=== PATIENT | male | born 1965 | race African-American/Black ===

== ENCOUNTER 2016-12-30 12:24 | Emergency (ER) | payer OTHER ==
[~2016-12-30 12:24] MED LIST: ALTACE; ALTACE PO; ASPIRIN PO; BACTRIM DS TABL1 TAB PO; BAYER ASPIRIN325 M1 PO; GAS RELIEF 8080 M1 PO; GLIPIZIDE10 MG PO; GLUCOTROL XL PO; HYDRALAZINE HCL25 MG PO; KEFLEX PO; LIPITOR PO; LIPITOR20 MG PO; LISINOPRIL PO; LOPRESSOR PO; LORTAB 7.5-5001 TAB PO; METFORMIN PO; NEXIUM PO; PHENERGAN PO; PIOGLITAZONE45 MG PO; PLAVIX; TUMS500 M1 PO; TYLOX 5/500 CAP1 CAP PO; VICODIN 5/500 T1 TAB PO; VITAMIN D34000 UNIT PO; ZESTRIL10 M1 PO; ZETIA PO
[2017-04-13] MEDS ORDERED: BAYER CHEWABLE81 MG PO (09:34)
[2017-04-13] MEDS ORDERED: LIPITOR (09:35)
[2017-04-13] MEDS ORDERED: VIT B-12 PO (09:35)
[2017-04-13] MEDS ORDERED: NEXIUM PO (09:36)
[2017-04-13] MEDS ORDERED: PIOGLITAZONE45 MG PO (09:36)
[2017-04-13] MEDS ORDERED: ZESTRIL40 MG PO (09:37)
[2017-04-13] MEDS ORDERED: ADALAT CC PO (09:38)
[2017-04-13] MEDS ORDERED: LOPRESSOR PO (09:38)
[2017-04-13] MEDS ORDERED: HYDRALAZINE HCL50 MG PO (09:38)
== END 2016-12-30 12:38 | disposition home or self-care (01) ==
LOC: CED 12:24
DX: I10 Essential (primary) hypertension (principal); E11.9 Type 2 diabetes mellitus without complications
CPT/HCPCS: 99282

== ENCOUNTER → 2017-04-13 | Day surgery (SDC) | payer MEDICARE ==
[~2017-04-13] MED LIST changes: +ADALAT CC PO; +BAYER CHEWABLE81 MG PO; +HYDRALAZINE HCL50 MG PO; +LIPITOR; +VIT B-12 PO; +ZESTRIL40 MG PO
--- NOTE | ~2017-04-13 | OR ---
Unit #: [id number] #: [id number] Patient: ADOLFO COWART [id number] [address] [place], [place] [address] [id number] O MR#: [id number] NAME: ADOLFO COWART. ROOM: Date of Procedure: 04/13/2017 Admission Date: 04/13/2017 Surgeon: Daniel Garcia M.D. : 1965 Attending Physician: Daniel Garcia M.D. Primary Care Physician: [facility] OPERATIVE REPORT PROCEDURES PERFORMED Esophagogastroduodenoscopy with biopsy, colonoscopy with biopsy, and colonoscopy with snare polypectomy. INDICATIONS FOR PROCEDURE Average risk for colorectal cancer, also with persistent GERD symptoms, undergoing evaluation with upper endoscopy and colonoscopy. MEDICATIONS Monitored anesthesia. POSTOPERATIVE FINDINGS 1. Small segment of Agarwal esophagus. Biopsies taken. 2. Mild esophagitis, moderate hiatal hernia. 3. Mild gastritis. Biopsies taken. 4. Normal duodenum and distal duodenum. 5. Colonoscopy completed to cecum. Prep was adequate. 6. Polyp, ascending colon, 2 mm, removed using biopsy forceps. 7. Polyp, transverse colon, 5 to 6 mm, snared and sent for histopathology. 8. Rest of the colon exam was normal. PLAN Follow up on the pathology report. If adenomatous, repeat colonoscopy in 5 years. Continue PPI therapy. DESCRIPTION OF PROCEDURE The patient was explained of the procedure, risks, and benefits along with risks and benefits of anesthesia. He was brought to the endoscopy room. Propofol anesthesia was given. Bite block was placed. The scope was passed down the mouth into the esophagus, stomach, duodenum, and distal duodenum. Findings as described. Biopsies taken. Gently, I pulled the scope out of the patient's mouth. He tolerated it well. At this time, he was turned around and repositioned for colonoscopy. Rectal exam was done, which was normal. Colonoscope was lubricated, passed up the rectum, advanced under direct vision all the way to the cecum. Cecum was identified by ileocecal valve and appendiceal orifice. Two polyps were seen as described above. I retroflexed in the rectum, small hemorrhoids seen. Scope was gently pulled out. He tolerated it well. Unit #: [id number] #: [id number] Patient: ADOLFO COWART Dictated by... Justina Mcgee/connor TD: 04/13/2017 14:34 JOB #: [id number] CC: Caterina Phillip M.D. OPERATIVE REPORT Page 1 of 1 X Daniel Garcia MD PROCEDURE OPERATIVE NOTE
== END | disposition home or self-care (01) ==
LOC: COPS 08:50
DX: Z12.11 Encounter for screening for malignant neoplasm of colon (principal); D12.2 Benign neoplasm of ascending colon; D12.3 Benign neoplasm of transverse colon; K29.50 Unspecified chronic gastritis without bleeding; K20.9 Esophagitis, unspecified; K44.9 Diaphragmatic hernia without obstruction or gangrene; K64.9 Unspecified hemorrhoids; E11.9 Type 2 diabetes mellitus without complications; I10 Essential (primary) hypertension; K21.9 Gastro-esophageal reflux disease without esophagitis; F17.210 Nicotine dependence, cigarettes, uncomplicated; Z86.73 Personal history of transient ischemic attack (TIA), and cerebral infarction without residual deficits; Z88.1 Allergy status to other antibiotic agents; Z79.82 Long term (current) use of aspirin
CPT/HCPCS: 82947; 88305; 88312